=== PATIENT | female | born 1945 | race Caucasian/White ===

== ENCOUNTER 2023-01-06 09:08 | Outpatient (CLI) | payer MEDICARE | END 2023-01-06 09:09 | disposition home or self-care (01) | LOC: BICMAMMO 09:08 | PROVIDERS: ATTEND Family Medicine | DX: Z12.31 Encounter for screening mammogram for malignant neoplasm of breast (principal); N64.89 Other specified disorders of breast | CPT/HCPCS: 77063; 77067 ==

== ENCOUNTER 2023-01-10 14:16 | Outpatient (CLI) | payer MEDICARE | END 2023-01-10 14:17 | disposition home or self-care (01) | LOC: BICMAMMO 14:16 | PROVIDERS: ATTEND Family Medicine | DX: N64.89 Other specified disorders of breast (principal) | CPT/HCPCS: 77065; G0279 ==

== ENCOUNTER 2023-05-24 09:17 | Outpatient (CLI) | payer MEDICARE | END 2023-05-24 09:18 | disposition home or self-care (01) | LOC: DTY/OP 09:17 | PROVIDERS: ATTEND Family Medicine | DX: I12.9 Hypertensive chronic kidney disease with stage 1 through stage 4 chronic kidney disease, or unspecified chronic kidney disease (principal); E11.22 Type 2 diabetes mellitus with diabetic chronic kidney disease; N18.9 Chronic kidney disease, unspecified | CPT/HCPCS: 97802 ==

== ENCOUNTER 2023-06-09 08:30 | Outpatient (CLI) | payer MEDICARE | END 2023-06-09 08:31 | disposition home or self-care (01) | LOC: ULT 08:30 | PROVIDERS: ATTEND Internal Medicine Nephrology | DX: I12.9 Hypertensive chronic kidney disease with stage 1 through stage 4 chronic kidney disease, or unspecified chronic kidney disease (principal); N18.30 Chronic kidney disease, stage 3 unspecified | CPT/HCPCS: 76770; 93975 ==